=== PATIENT | female | born 1975 | race Native Hawaiian/Other Pacific Islander ===

== ENCOUNTER 2019-04-30 18:11 | Inpatient (IN) | payer OTHER ==
[~2019-04-30] VITALS: Ht 167.6 cm; Wt 98.4 kg
[2019-04-30 18:11] VITALS: BP 152/98; TEMP 97.7
[2019-04-30 18:45] VITALS: BP 128/82
[2019-04-30 18:47] LABS: PLATELET COUNT 365 K/uL (152-353)
[2019-04-30] MEDS ORDERED: ADDERALL10 MG (18:56)
[2019-04-30 19:03] LABS: POTASSIUM 3.5 mmol/L (3.6-5.2)
[2019-04-30 22:28] VITALS: BP 134/83; TEMP 98.2; Ht 167.6 cm; Wt 98.4 kg
[2019-04-30 23:46] VITALS: BP 123/68; TEMP 98.5
[2019-05-01] VITALS (18 sets, daily range): BP systolic 103–127; BP diastolic 46–89; TEMP 97.7–102.9
[2019-05-01 07:04] LABS: PLATELET COUNT 302 K/uL (152-353)
[2019-05-01 07:23] LABS: POTASSIUM 3.7 mmol/L (3.6-5.2)
[2019-05-01 07:38] LABS: PARTIAL THROMBOPLASTIN TIME 21.1 SECONDS (24.5-33.6)
[2019-05-02] VITALS: BP 115/45; TEMP 98.4
[2019-05-02 03:43] VITALS: BP 107/68; TEMP 98.8
[2019-05-02 08:35] VITALS: BP 110/67; TEMP 98.2
== END 2019-05-02 12:00 | disposition home or self-care (01) | DRG 812 ==
LOC: ED 18:11 → MED/SURG 21:09
PROVIDERS: Family Medicine; Internal Medicine; ADMIT Student in an Organized Health Care Education/Training Program
PROC: 30233N1 Transfusion of Nonautologous Red Blood Cells into Peripheral Vein, Percutaneous Approach (ICD-10-PCS; 2019-04-30)
PROC: 30233N1 Transfusion of Nonautologous Red Blood Cells into Peripheral Vein, Percutaneous Approach (ICD-10-PCS; principal; 2019-05-01)
PROC: 0DJ08ZZ Inspection of Upper Intestinal Tract, Via Natural or Artificial Opening Endoscopic (ICD-10-PCS; 2019-05-01)
DX: D64.89 Other specified anemias (principal); K92.2 Gastrointestinal hemorrhage, unspecified; Z72.0 Tobacco use
CPT/HCPCS: 36415; 80048; 80053; 81000; 82272; 83735; 83880; 84484; 85007; 85014; 85018; 85027; 85379; 85610; 85730; 86850; 86900; 86901; 86922; 87502; 94760; 99283; J2765; J3490; P9016